=== PATIENT | male | born 1990 | race African-American/Black ===

== ENCOUNTER 2017-07-10 14:37 | Emergency (ER) | payer SELFPAY ==
[~2017-07-10] VITALS: Ht 180.3 cm; Wt 84.0 kg
[2017-07-10] MEDS ORDERED: LIDOCAINE HCL 1% 20ML VIAL (Pyxis) INJ MC ONE (16:15)
[2017-07-10] MEDS ORDERED: ACETAMINOPHEN WITH CODEINE 300/30MG TABLET PO ONE (16:15)
[2017-07-10] MEDS ORDERED: TETANUS, DIPHTHERIA, PERTUSSIS VAC/PF 0.5ML (>7YR OLD) IM ONE (16:15)
[2017-07-10] MEDS ORDERED: BACITRACIN ZINC OINT UDPKT TOP ONE (16:15)
[2017-07-10] MEDS ORDERED: KETOROLAC 60MG/2ML VIAL IM ONE (16:15)
[2017-07-10 18:19] VITALS: BP 127/74
== END 2017-07-10 18:21 | disposition home or self-care (01) ==
LOC: ER 14:49
DX: S41.111A Laceration without foreign body of right upper arm, initial encounter (principal); F12.10 Cannabis abuse, uncomplicated; W19.XXXA Unspecified fall, initial encounter; Y93.89 Activity, other specified; Y92.89 Other specified places as the place of occurrence of the external cause; Y99.8 Other external cause status
CPT/HCPCS: 12002; 73090; 90471; 90715; 96372; 99284; J1885; J3490

== ENCOUNTER 2017-07-17 17:14 | Emergency (ER) | payer SELFPAY ==
[~2017-07-17] VITALS: Ht 180.3 cm; Wt 87.0 kg
[2017-07-17 17:44] VITALS: BP 135/90
== END 2017-07-17 20:17 | disposition home or self-care (01) ==
LOC: ER 18:00
DX: Z48.02 Encounter for removal of sutures (principal); F12.10 Cannabis abuse, uncomplicated
CPT/HCPCS: 99282; Z7610